=== PATIENT | male | born 1975 | race African-American/Black ===

== ENCOUNTER 2022-05-25 10:16 | Emergency (ER) | payer BC ==
[2022-05-25 11:05] VITALS: BP 140/88; PULSE 64; RESP 18; TEMP 98.1
--- NOTE | 2022-05-25 11:20 | ED ---
General Adult HPI - General Chief complaint: Extremity Problem,Nontraumatic Stated complaint: Pulled muscle Time Seen by Provider: 05/25/22 11:06 Source: patient, RN notes reviewed Mode of arrival: ambulatory Limitations: no limitations - History of Present Illness Initial comments: Patient is a pleasant 46-year-old male presenting to the emergency department with concern for left Calf discomfort. Onset of symptoms was 2 days ago. Patient got out of his work boots and was putting on his shoes. Sudden discomfort posterior left calf. Discomfort has been steady since that time. Patient has noticed some bruising. Discomfort does at times increase with touch and certain positions. No swelling. No history of chronic similar symptoms previously. No weakness. - Related Data Home Medications Medication Instructions Recorded Confirmed Multivitamin [Men's Multi-Vitamin] 1 tab PO DAILY 01/15/15 03/30/16 Cetirizine HCl [Zyrtec] 10 mg PO DAILY 01/31/16 03/30/16 Lansoprazole [Prevacid] 30 mg PO DAILY 01/31/16 03/30/16 Previous Rx's Medication Instructions Recorded INSULIN LISPRO (humaLOG) [humaLOG] 0 unit SQ AC-TID #1 vial 02/02/16 Insulin Glargine [Lantus Vial] 25 unit SQ HS #1 vial 02/02/16 metFORMIN HCL [Glucophage] 500 mg PO BID-W/MEALS #60 tab 02/02/16 Allergies Allergy/AdvReac Type Severity Reaction Status Date / Time No Known Allergies Allergy Verified 05/25/22 11:05 Review of Systems ROS Statement: Those systems with pertinent positive or pertinent negative responses have been documented in the HPI. ROS Other: All systems not noted in ROS Statement are negative. Constitutional: Denies: fever Eyes: Denies: eye pain ENT: Denies: ear pain Respiratory: Denies: cough Cardiovascular: Denies: chest pain Endocrine: Denies: fatigue Gastrointestinal: Denies: abdominal pain Genitourinary: Denies: dysuria Musculoskeletal: Reports: as per HPI. Denies: back pain Skin: Reports: as per HPI Past Medical History Past Medical History: Diabetes Mellitus Additional Past Medical History / Comment(s): Right shoulder tendinitis History of Any Multi-Drug Resistant Organisms: None Reported Past Surgical History: No Surgical Hx Reported Past Anesthesia/Blood Transfusion Reactions: Unable to Obtain Past Psychological History: No Psychological Hx Reported Smoking Status: Never smoker Past Alcohol Use History: Occasional Past Drug Use History: Marijuana - Past Family History Mother Family Medical History: No Reported History General Exam Limitations: no limitations General appearance: alert, in no apparent distress Head exam: Present: normocephalic Eye exam: Present: normal appearance Neck exam: Present: normal inspection Respiratory exam: Present: normal lung sounds bilaterally Cardiovascular Exam: Present: regular rate, normal rhythm Expanded Peripheral pulses: 2+: Posterior Tibialis (L) GI/Abdominal exam: Present: soft. Absent: tenderness Extremities exam: Present: other (Left mid calf with mild tenderness and ecchymosis. No swelling. No upper calf tenderness. Achilles tendon intact with Alfonso's test) Neurological exam: Present: alert. Absent: motor sensory deficit Expanded Motor strength exam: LLE: 5 Psychiatric exam: Present: normal affect, normal mood Skin exam: Present: normal color Course Vital Signs 05/25/22 11:03 Temperature 98.1 F Pulse Rate 64 Respiratory 18 Rate Blood Pressure 140/88 O2 Sat by Pulse 100 Oximetry Medical Decision Making - Medical Decision Making Patient updated - Radiology Data Radiology results: image reviewed (Some negative for DVT. Superficial thrombosis present) Disposition Clinical Impression: Superficial thrombophlebitis of left leg Disposition: HOME SELF-CARE Condition: Stable Instructions (If sedation given, give patient instructions): Superficial Thrombophlebitis (ED) Additional Instructions: Daily aspirin. Use Adin wrap. Warmth to affected area. Please follow-up with primary care physician in the next couple days for recheck. Return for increased pain, swelling, chest pain, difficulty breathing, worsening symptoms or other concerns. Is patient prescribed a controlled substance at d/c from ED?: No Referrals: Marcio Lopez MD [STAFF PHYSICIAN] - 1-2 days Time of Disposition: 12:17
--- NOTE | 2022-05-25 12:05 | US ---
EXAMINATION TYPE: US venous doppler duplex LE DATE OF EXAM: 05/25/2022 11:58 AM COMPARISON: US 2011 CLINICAL HISTORY: pain. Pain and swelling within the left calf. Patient states he has had a blood osvaldo t before. Patient does not take blood thinners. SIDE PERFORMED: Left TECHNIQUE: The lower extremity deep venous system is examined utilizing real time linear array sonog ryan with graded compression, doppler sonography and color-flow sonography. VESSELS IMAGED: Common Femoral Vein Deep Femoral Vein Greater Saphenous Vein * Femoral Vein Popliteal Vein Small Saphenous Vein * Proximal Calf Veins (* superficial vessels) Left Leg: No evidence of DVT in veins imaged. At patient's area of pain within the medial-posterior calf, there appears to be a superficial vessel that compresses incompletely- probable chronic interna l echoes within superficial vein. Color flow with defect noted. IMPRESSION: 1. No evidence of deep venous thrombosis of the left lower extremity. 2. Superficial venous thrombosis of a vein in the medial posterior left calf in the patient's region of pain.
== END 2022-05-25 12:27 | disposition home or self-care (01) ==
LOC: EC 10:16
DX: I80.02 Phlebitis and thrombophlebitis of superficial vessels of left lower extremity (principal); E11.9 Type 2 diabetes mellitus without complications; F12.90 Cannabis use, unspecified, uncomplicated; Z79.4 Long term (current) use of insulin
CPT/HCPCS: 99283

== ENCOUNTER → 2025-02-05 | Outpatient (CLI) | payer BC ==
--- NOTE | 2025-02-05 15:37 | XR ---
EXAMINATION TYPE: XR lumbosacral spine min 4V DATE OF EXAM: 02/05/2025 2:48 PM COMPARISON: None. CLINICAL INDICATION: Male, 49 years old with history of M54.50 LOW BACK PAIN M54.2 CERVICALGIA, TECHNIQUE: Frontal, lateral, and oblique images of the lumbar spine are obtained. FINDINGS: There are 5 lumbar type vertebral bodies identified. The lumbar spine shows satisfactory alignment without evidence of acute fracture or dislocation. Vertebral body heights are within normal limits. Mild multilevel degenerative disc space narrowing. The overlying soft tissue appears unremar kable. IMPRESSION: No acute fracture or dislocation is seen in the lumbar spine.ICD 10 NO FRACTURE, INITIAL EVALUATION [facility], , 02/05/2025 3:35 PM
--- NOTE | 2025-02-05 15:39 | XR ---
EXAMINATION TYPE: XR thoracic spine complete DATE OF EXAM: 02/05/2025 2:48 PM COMPARISON: None. CLINICAL INDICATION: Male, 49 years old with history of M54.50 LOW BACK PAIN M54.2 CERVICALGIA, TECHNIQUE: Frontal, lateral, and swimmer's view of thoracic spine are obtained. FINDINGS: Thoracic spine show satisfactory alignment without evidence of acute fracture or dislocatio n. Vertebral body heights are preserved. Mild multilevel degenerative disc space narrowing and spond ylosis. Visualized ribs are unremarkable. IMPRESSION: No acute fracture or dislocation is seen in the thoracic spine. ICD 10 NO FRACTURE, INIT IAL EVALUATION [facility], , 02/05/2025 3:37 PM
--- NOTE | 2025-02-05 15:41 | XR ---
EXAMINATION TYPE: XR cervical spine comp DATE OF EXAM: 02/05/2025 2:48 PM COMPARISON: None. CLINICAL INDICATION: Male, 49 years old with history of M54.50 LOW BACK PAIN M54.2 CERVICALGIA, TECHNIQUE: Frontal, lateral, oblique, swimmers, and open mouth view of the cervical spine are obtaine d. FINDINGS: The cervical spine is visualized in its entirety from C1 thru the top of T1 level. It is s atisfactory in alignment without evidence of acute fracture or dislocation. The pre-vertebral soft t issue appears within normal limits. Mild degenerative disc space narrowing extending from C4 through C7. Ventral spondylosis. The C1-C2 articulation is unremarkable on the open mouth view. The oblique images are within normal limits. IMPRESSION: No acute fracture or dislocation is seen in the cervical spine.ICD 10 NO FRACTURE, INITI AL EVALUATION [facility], , 02/05/2025 3:39 PM
== END | disposition home or self-care (01) ==
LOC: RADXRMAIN 13:24
PROVIDERS: ATTEND Internal Medicine Geriatric Medicine
DX: M50.323 Other cervical disc degeneration at C6-C7 level (principal); M51.360 Other intervertebral disc degeneration, lumbar region with discogenic back pain only; M47.812 Spondylosis without myelopathy or radiculopathy, cervical region
CPT/HCPCS: 72050; 72072; 72110